=== PATIENT | female | born 1965 | race Caucasian/White ===

== ENCOUNTER 2018-07-02 16:42 | Emergency (ER) | payer OTHER ==
[~2018-07-02] VITALS: Ht 172.7 cm; Wt 111.1 kg
[~2018-07-02 16:42] MED LIST: ACET500; ALBIPROI; ALBIPROI INH; ALBU.083IS; ALBU.083IS IH; ALBU90I INH; ALBU90OI; ALBU90OI INH; ALPR.5 PO; AZIT250 PO; Amlodipine Bes2.5 MG PO; BELPTAB PO; BENZ100A PO; BISA5EC PO; CEFU500 PO; CIPR500 PO; CLARITIN10 MG PO; DIAZ5 PO; DIPATR PO; DIPH50 PO; DOC250 PO; DOCU100 PO; DOXY100 PO; EPIPEN 2-P0.3 MG/0.3 IM; FAMO10 PO; FAMO20 PO; FAMO40 PO; FLUT.05NI; FLUT110OIA IH; Flexeril5 MG PO; GUAI600T33 PO; HYDACE5 PO; HYDGUAL120 PO; HYDR1TAB94 PO; LEVFLO500 PO; LEVSOD100 PO; LEVSOD50; LEVSOD50 PO; LORA.5 PO; LORA1 PO; MEDR5; MEDR5 PO; METR500 PO; NAPR500 PO; OMEP20ER PO; ONDA4 PO; OXYACE5T; OXYACE5T PO; PANT40 PO; POLY17UD PO; PRED10 PO; PRED20 PO; PROACE100; PROACE100 PO; PROM25 PO; PSEU120ER PO; PSEU30; PSEU30 PO; Percocet 5-3251 EACH PO; Prednisone20 MG PO; RABE20 PO; RANI150; RANI150 PO; RXHYD5325 PO; RXHYDACE PO; RXONDA4ODT MM; RXOXYACE PO; RXPROACE PO; RXPROM25 PO; SERT25 PO; SUCR1 PO; TETR250; TETR250 PO; TRAM50 PO; TYLENOL; Zovirax800 MG PO
[2018-07-02] MEDS ORDERED: FAMO20 PO (17:10)
[2018-07-02] MEDS ORDERED: AMLO5 PO (17:10)
== END 2018-07-02 17:32 | disposition home or self-care (01) ==
LOC: ER 16:42
DX: H61.21 Impacted cerumen, right ear (principal); Z88.1 Allergy status to other antibiotic agents; Z88.8 Allergy status to other drugs, medicaments and biological substances; Z91.013 Allergy to seafood; Z88.6 Allergy status to analgesic agent; Z79.899 Other long term (current) drug therapy; I10 Essential (primary) hypertension; Z87.891 Personal history of nicotine dependence
CPT/HCPCS: 99282

== ENCOUNTER 2018-08-01 19:49 | Emergency (ER) | payer OTHER ==
[~2018-08-01] VITALS: Ht 172.7 cm; Wt 117.9 kg
[~2018-08-01 19:49] MED LIST changes: +AMLO5 PO
[2018-08-01 20:29] LABS: BASOPHILS ABSOLUTE AUTO 0.04 K/mm3 (0.00-0.23); BASOPHILS PERCENT AUTO 1 % (0-2); EOSINOPHILS PERCENT AUTO 1 % (0-6); Hematocrit 38.8 % (33.0-51.0); Hemoglobin 12.6 g/dL (11.5-16.0); IMMATURE GRAN ABSOLUTE AUTO 0.03 K/mm3 (0.00-0.10); IMMATURE GRAN PERCENT AUTO 0 % (0-1); LYMPHOCYTES ABSOLUTE AUTO 2.59 K/mm3 (0.84-5.20); LYMPHOCYTES PERCENT AUTO 36 % (21-46); MONOCYTES ABSOLUTE AUTO 0.57 K/mm3 (0.16-1.47); MONOCYTES PERCENT AUTO 8 % (4-13); Mean Corpuscular HGB 29.7 pg (26.0-34.0); Mean Corpuscular HGB Conc 32.5 g/dL (31.5-36.5); Mean Corpuscular Volume 92 fL (80-100); NEUTROPHILS ABSOLUTE AUTO 3.95 K/mm3 (1.96-9.15); NEUTROPHILS PERCENT AUTO 54 % (41-73); Platelet Count 294 K/mm3 (150-400); RDW Coefficient Variation 13.7 % (11.7-14.2); RDW Standard Deviation 46.4 fL (35.1-46.3); Red Blood Cell Count 4.24 M/mm3 (3.80-5.20); White Blood Cell Count 7.28 K/mm3 (4.00-11.30)
[2018-08-01 21:28] LABS: Alanine Aminotransfer (ALT/SGP 31 U/L (12-78); Albumin, Blood 3.6 g/dL (3.4-5.0); Albumin/Globulin Ratio 0.9 (0.8-1.8); Alk Phos 83 U/L (50-136); Anion Gap 7 mmol/L (6-16); Aspartate Aminotrans (AST/SGOT 19 U/L (12-37); Bilirubin, Total 0.2 mg/dL (0.1-1.0); Blood Urea Nitrogen 9 mg/dL (8-24); Bun/Creatinine Ratio 9.9 (12.0-20.0); CO2, Blood 26 mmol/L (21-32); Calcium, Blood 8.4 mg/dL (8.5-10.1); Chloride, Blood 109 mmol/L (98-108); Creatinine, Blood 0.91 mg/dL (0.40-1.00); Glomerular Filtration Rate >60 (60-); Glucose, Blood 88 mg/dL (70-99); Potassium, Blood 4.1 mmol/L (3.5-5.5); Sodium, Blood 142 mmol/L (136-145); Total Protein, Blood 7.6 g/dL (6.4-8.2); Troponin I <0.015 ng/mL (0.000-0.040)
== END 2018-08-01 22:39 | disposition home or self-care (01) ==
LOC: ER 19:49
PROVIDERS: Emergency Medicine
DX: S46.912A Strain of unspecified muscle, fascia and tendon at shoulder and upper arm level, left arm, initial encounter (principal); J44.9 Chronic obstructive pulmonary disease, unspecified; E03.9 Hypothyroidism, unspecified; I10 Essential (primary) hypertension; Z88.0 Allergy status to penicillin; Z88.2 Allergy status to sulfonamides; Z87.891 Personal history of nicotine dependence; Z79.899 Other long term (current) drug therapy; X58.XXXA Exposure to other specified factors, initial encounter
CPT/HCPCS: 71046; 80053; 84484; 85025; 93005; 93010; 99285-25; A9270-GY

== ENCOUNTER 2020-04-03 03:11 | Observation (INO) | payer OTHER ==
[~2020-04-03] VITALS: Ht 175.3 cm; Wt 117.4 kg
[2020-04-03 03:56] LABS: BASOPHILS ABSOLUTE AUTO 0.03 K/mm3 (0.00-0.23); BASOPHILS PERCENT AUTO 0 % (0-2); EOSINOPHILS ABSOLUTE AUTO 0.13 K/mm3 (0.00-0.68); EOSINOPHILS PERCENT AUTO 2 % (0-6); Hematocrit 42.8 % (33.0-51.0); Hemoglobin 13.8 g/dL (11.5-16.0); IMMATURE GRAN ABSOLUTE AUTO 0.03 K/mm3 (0.00-0.10); IMMATURE GRAN PERCENT AUTO 0 % (0-1); LYMPHOCYTES PERCENT AUTO 44 % (21-46); MONOCYTES ABSOLUTE AUTO 0.48 K/mm3 (0.16-1.47); MONOCYTES PERCENT AUTO 7 % (4-13); Mean Corpuscular HGB 28.6 pg (26.0-34.0); Mean Corpuscular HGB Conc 32.2 g/dL (31.5-36.5); Mean Corpuscular Volume 89 fL (80-100); Mean Platelet Volume 9.7 fL (9.1-12.4); NEUTROPHILS ABSOLUTE AUTO 3.43 K/mm3 (1.96-9.15); NEUTROPHILS PERCENT AUTO 47 % (41-73); Platelet Count 268 K/mm3 (150-400); RDW Coefficient Variation 13.4 % (11.7-14.2); RDW Standard Deviation 44.4 fL (35.1-46.3); Red Blood Cell Count 4.83 M/mm3 (3.80-5.20)
[2020-04-03 04:11] LABS: Alanine Aminotransfer (ALT/SGP 36 U/L (12-78); Albumin, Blood 4.2 g/dL (3.4-5.0); Alk Phos 78 U/L (50-136); Anion Gap 9 mmol/L (6-16); Aspartate Aminotrans (AST/SGOT 22 U/L (12-37); Bilirubin, Total 0.2 mg/dL (0.1-1.0); Blood Urea Nitrogen 12 mg/dL (8-24); Bun/Creatinine Ratio 15.7 (12.0-20.0); CO2, Blood 24 mmol/L (21-32); Calcium, Blood 8.9 mg/dL (8.5-10.1); Chloride, Blood 108 mmol/L (98-108); Creatinine, Blood 0.76 mg/dL (0.40-1.00); Globulin, Blood 4.2 g/dL (2.2-4.0); Glomerular Filtration Rate >60 (60-); Glucose, Blood 110 mg/dL (70-99); Potassium, Blood 3.5 mmol/L (3.5-5.5); Sodium, Blood 141 mmol/L (136-145); Total Protein, Blood 8.4 g/dL (6.4-8.2); Troponin I <0.015 ng/mL (0.000-0.040)
[2020-04-03 05:27] LABS: Free Thyroxine 1.01 ng/dL (0.70-1.60); Magnesium, Blood 2.2 mg/dL (1.6-2.4)
--- NOTE | 2020-04-03 06:45 | NUR ---
PT ARRIVES TO ICU 9 VIA GURNEY FROM ER. SHE DENIES CP/PRESSURE, STATES THAT THE TIGHTNESS SHE HAD BEEN HAVING IS FEELING MUCH IMPROVED. SHE STANDS TO TRANSFER TO BED WITH STEADY GAIT, DENIES DIZZINESS/VERTIGO WITH TRANSFER. DENIES N/V, DENIES PAIN, DENIES NUMBNESS/TINGLING. VERB UNDERSTANDING OF CALL LIGHT USE. DENIES FURTHER NEEDS AT THIS TIME. SHE STATES THAT SHE FELT LIKE SHE HAD A SINUS INFECTION PRIOR TO BEING TESTED FOR COVID AT HER PRIMARY CARE PHYSICIAN'S OFFICE. 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 SHE DOES STATE THAT THERE IS OTHER FAMILY IN THE HOME AT THIS TIME TO ASSIST HER MOTHER. SHE IS SPEAKING IN FULL SENTENCES AND SATS MAINTAINING WITHOUT VISIBLE INCREASED WORK OF BREATHING. HEART RATE ON MONITOR IS 70S, CARDIZEM GTT AT 5 MG/HR, PRESSURES MAINTAINING. WILL REPORT TO DAY SHIFT RN.
--- NOTE | 2020-04-03 11:14 | NUR ---
AM NOTE... ASSUMED CARE OF PT APROX 0700, PT IS A&Ox4 AND IND IN THE ROOM. PT IS COVID-19 POSITIVE. PT WAS ADMITTED FOR AFIB W/RVR BUT WAS CONVERTED BACK TO SINUS PRIOR TO ARRIVAL ON THE UNIT. PT IS ON CARDIZEM GTT RUNNING AT 5MG/HR WITH STABLE BP AND HR IN THE 60'S-70'S. CARDIZEM GTT WAS STOPPED AT 0945 WHEN 30MG PO CARDIZEM WAS GIVEN. PT DENIES ANY CHEST PAIN/PRESSURE OR PALPITATIONS. PT IS ON RA WITH O2 SATS>95%, L/S CLEAR T/O. NO EDEMA NOTED ON ASSESSMENT. BT PRESENT AND HYPERACTIVE,ABD IS SOFT AND NONTENDER TO PALP. PT IS IND WITH TURNING IN BED SEVERAL TIMES PER HOUR AND IND UP TO THE TOILET. PT DENIES ANY LIGHT HEADED/DIZZINESS OR SOB WITH ACTIVITY. CALL LIGHT IN REACH WILL CONTINUE TO MONITOR.
--- NOTE | 2020-04-03 11:46 | NUR ---
ECHOCARDIOGRAM COMPLETED
--- NOTE | 2020-04-03 16:18 | NUR ---
SHIFT SUMMARY ICU TRANSFER THIS AFTERNOON. PATIENT MEDICATED X1 FOR PAIN IN NECK AND SHOULDER. DENIES CHEST PAIN, NAUSEA, AND SHORTNESS OF BREATH. UP INDEPENDENT IN ROOM. EATING AND DRINKING WELL. TROPONINS NEGATIVE THUS FAR. ECHO TOMORROW AM.
--- NOTE | 2020-04-04 04:30 | NUR ---
SHIFT SUMMARY NO ACUTE CHANGES THIS SHIFT, A&O, INDEP IN ROOM, MEDICATED FOR DEXTER- PT STATES TYLENOL RELIEVES DEXTER BUT "WEARS OFF TOO FAST", SLEPT T/O THE NIGHT, SLEEPING AT THIS TIME, CALL LIGHT IN REACH, WILL CONT TO MONITOR UNTIL REPORT GIVEN TO DAY RN.
[2020-04-04] MEDS ORDERED: DILT120 PO (13:08)
== END 2020-04-04 15:35 | disposition home or self-care (01) ==
LOC: ER 03:11 → ICUW 03:12 → MEDS 13:48
PROVIDERS: Emergency Medicine; ADMIT Internal Medicine
DX: I48.91 Unspecified atrial fibrillation (principal); U07.1 COVID-19; E03.9 Hypothyroidism, unspecified; J44.9 Chronic obstructive pulmonary disease, unspecified; I10 Essential (primary) hypertension; E66.01 Morbid (severe) obesity due to excess calories; Z87.891 Personal history of nicotine dependence; Z88.2 Allergy status to sulfonamides; Z88.8 Allergy status to other drugs, medicaments and biological substances; Z88.1 Allergy status to other antibiotic agents; Z88.0 Allergy status to penicillin; Z91.013 Allergy to seafood; Z68.41 Body mass index [BMI] 40.0-44.9, adult
CPT/HCPCS: 36415; 71045; 80053; 83735; 83880; 84439; 84443; 84484; 85025; 93005; 93010; 93306; 96374; 96375; 96376; 99285-25; A9270; G0378; J1100; J1170; J1650; J2405

== ENCOUNTER 2020-05-04 12:59 | Emergency (ER) | payer OTHER ==
[~2020-05-04] VITALS: Ht 172.7 cm; Wt 113.4 kg
[~2020-05-04 12:59] MED LIST changes: +DILT120 PO
[2020-05-04 14:04] LABS: BASOPHILS ABSOLUTE AUTO 0.03 K/mm3 (0.00-0.23); BASOPHILS PERCENT AUTO 1 % (0-2); EOSINOPHILS ABSOLUTE AUTO 0.08 K/mm3 (0.00-0.68); EOSINOPHILS PERCENT AUTO 1 % (0-6); Hematocrit 40.6 % (33.0-51.0); Hemoglobin 13.4 g/dL (11.5-16.0); IMMATURE GRAN ABSOLUTE AUTO 0.03 K/mm3 (0.00-0.10); IMMATURE GRAN PERCENT AUTO 1 % (0-1); LYMPHOCYTES ABSOLUTE AUTO 1.74 K/mm3 (0.84-5.20); LYMPHOCYTES PERCENT AUTO 28 % (21-46); MONOCYTES ABSOLUTE AUTO 0.38 K/mm3 (0.16-1.47); MONOCYTES PERCENT AUTO 6 % (4-13); Mean Corpuscular HGB 29.2 pg (26.0-34.0); Mean Corpuscular Volume 89 fL (80-100); Mean Platelet Volume 9.7 fL (9.1-12.4); NEUTROPHILS PERCENT AUTO 64 % (41-73); Platelet Count 295 K/mm3 (150-400); RDW Coefficient Variation 13.5 % (11.7-14.2); RDW Standard Deviation 43.8 fL (35.1-46.3); Red Blood Cell Count 4.59 M/mm3 (3.80-5.20); White Blood Cell Count 6.26 K/mm3 (4.00-11.30)
[2020-05-04 14:26] LABS: Alanine Aminotransfer (ALT/SGP 29 U/L (12-78); Albumin, Blood 3.7 g/dL (3.4-5.0); Albumin/Globulin Ratio 0.9 (0.8-1.8); Alk Phos 88 U/L (50-136); Anion Gap 5 mmol/L (6-16); Aspartate Aminotrans (AST/SGOT 20 U/L (12-37); Bilirubin, Total 0.3 mg/dL (0.1-1.0); Blood Urea Nitrogen 6 mg/dL (8-24); Bun/Creatinine Ratio 8.2 (12.0-20.0); CO2, Blood 26 mmol/L (21-32); Calcium, Blood 9.1 mg/dL (8.5-10.1); Chloride, Blood 109 mmol/L (98-108); Creatinine, Blood 0.74 mg/dL (0.40-1.00); Globulin, Blood 4.3 g/dL (2.2-4.0); Glomerular Filtration Rate >60 (60-); Glucose, Blood 127 mg/dL (70-99); Sodium, Blood 140 mmol/L (136-145); Troponin I <0.015 ng/mL (0.000-0.040)
[2020-05-04] MEDS ORDERED: ALLERCLEAR10 MG PO (15:13)
[2020-05-04] MEDS ORDERED: LEVOTHYROXINE112 MC2 PO (15:13)
[2020-05-04 15:45] LABS: Source, Urine Clean Catch
[2020-05-04 15:47] LABS: Appearance, Urine Clear (Clear); Bilirubin, Urine Neg (Neg); Blood, Urine Neg (Neg); Color, Urine Yellow (P-Yellow); Glucose Qualitative, Urine Neg (Neg); Ketones, Urine Neg (Neg); Leukocyte Esterase, Urine Neg (Neg); Nitrite, Urine Neg (Neg); Protein, Urine Neg (Neg); Specific Gravity, Urine 1.005 (1.003-1.022); Urobilinogen, Urine NORM (Normal)
[2020-05-04] MEDS ORDERED: DILT120 PO (16:01)
== END 2020-05-04 16:47 | disposition home or self-care (01) ==
LOC: ER 12:59
PROVIDERS: Emergency Medicine; Physician Assistant
DX: I48.0 Paroxysmal atrial fibrillation (principal); J44.9 Chronic obstructive pulmonary disease, unspecified; E03.9 Hypothyroidism, unspecified; I10 Essential (primary) hypertension; Z87.891 Personal history of nicotine dependence; Z79.899 Other long term (current) drug therapy; Z88.1 Allergy status to other antibiotic agents; Z88.8 Allergy status to other drugs, medicaments and biological substances; Z88.0 Allergy status to penicillin; Z88.6 Allergy status to analgesic agent; Z88.2 Allergy status to sulfonamides
CPT/HCPCS: 36415; 71046; 80053; 81003; 83690; 84484; 85025; 93005; 93010; 99285-25

== ENCOUNTER 2021-07-06 00:05 | Emergency (ER) | payer OTHER ==
[~2021-07-06] VITALS: Ht 172.7 cm; Wt 102.1 kg
[~2021-07-06 00:05] MED LIST changes: +ALLERCLEAR10 MG PO; +LEVOTHYROXINE112 MC2 PO
== END 2021-07-06 03:53 | disposition home or self-care (01) ==
LOC: ER 00:05
DX: S90.32XA Contusion of left foot, initial encounter (principal); J44.9 Chronic obstructive pulmonary disease, unspecified; E03.9 Hypothyroidism, unspecified; I10 Essential (primary) hypertension; Z87.891 Personal history of nicotine dependence; Z88.0 Allergy status to penicillin; Z88.2 Allergy status to sulfonamides; Z88.8 Allergy status to other drugs, medicaments and biological substances; Z79.899 Other long term (current) drug therapy; X58.XXXA Exposure to other specified factors, initial encounter
CPT/HCPCS: 73630; 99283-25; A9270

== ENCOUNTER 2022-04-03 22:22 | Emergency (ER) | payer OTHER ==
[~2022-04-03] VITALS: Ht 167.6 cm; Wt 127.0 kg
[2022-04-03] MEDS ORDERED: EUTHYROX112 MC1 PO (23:20)
[2022-04-03] MEDS ORDERED: DILTIAZEM 24HR240 M3 PO (23:20)
[2022-04-03] MEDS ORDERED: CYCL10 PO (23:20)
[2022-04-03 23:21] LABS: Source, Urine Clean Catch
[2022-04-03 23:26] LABS: Appearance, Urine Clear (Clear); Bilirubin, Urine Neg (Neg); Blood, Urine Neg (Neg); Glucose Qualitative, Urine Neg (Neg); Ketones, Urine Neg (Neg); Leukocyte Esterase, Urine Neg (Neg); Nitrite, Urine Neg (Neg); Protein, Urine Neg (Neg); Specific Gravity, Urine 1.015 (1.003-1.022); Urobilinogen, Urine NORM (Normal)
[2022-04-03 23:37] LABS: BASOPHILS ABSOLUTE AUTO 0.04 K/mm3 (0.00-0.23); BASOPHILS PERCENT AUTO 1 % (0-2); EOSINOPHILS ABSOLUTE AUTO 0.07 K/mm3 (0.00-0.68); EOSINOPHILS PERCENT AUTO 1 % (0-6); Hematocrit 39.1 % (33.0-51.0); Hemoglobin 12.9 g/dL (11.5-16.0); IMMATURE GRAN ABSOLUTE AUTO 0.03 K/mm3 (0.00-0.10); IMMATURE GRAN PERCENT AUTO 0 % (0-1); LYMPHOCYTES ABSOLUTE AUTO 2.24 K/mm3 (0.84-5.20); LYMPHOCYTES PERCENT AUTO 28 % (21-46); MONOCYTES ABSOLUTE AUTO 0.43 K/mm3 (0.16-1.47); MONOCYTES PERCENT AUTO 5 % (4-13); Mean Corpuscular HGB 29.5 pg (26.0-34.0); Mean Corpuscular Volume 89 fL (80-100); Mean Platelet Volume 8.9 fL (9.1-12.4); NEUTROPHILS ABSOLUTE AUTO 5.34 K/mm3 (1.96-9.15); NEUTROPHILS PERCENT AUTO 65 % (41-73); Platelet Count 299 K/mm3 (150-400); RDW Coefficient Variation 13.6 % (11.7-14.2); RDW Standard Deviation 44.8 fL (35.1-46.3); Red Blood Cell Count 4.38 M/mm3 (3.80-5.20); White Blood Cell Count 8.15 K/mm3 (4.00-11.30)
[2022-04-03 23:38] LABS: Color, Urine Pale Yellow (P-Yellow)
[2022-04-04 00:12] LABS: Influenza A, PCR NEGATIVE (NEGATIVE); Influenza B, PCR NEGATIVE (NEGATIVE); Resp Syncytial Virus, PCR NEGATIVE (NEGATIVE); SARS-Cov-2 (COVID-19) PCR, MMC NEGATIVE (NEGATIVE)
[2022-04-04 00:31] LABS: Magnesium, Blood 2.3 mg/dL (1.6-2.4)
[2022-04-04 00:34] LABS: Albumin, Blood 3.9 g/dL (3.4-5.0); Albumin/Globulin Ratio 0.8 (0.8-1.8); Bilirubin, Total 0.2 mg/dL (0.1-1.0); Bun/Creatinine Ratio 11.1 (12.0-20.0); Calcium, Blood 9.4 mg/dL (8.5-10.1); Creatinine, Blood 0.72 mg/dL (0.40-1.00); Globulin, Blood 4.6 g/dL (2.2-4.0); Potassium, Blood 3.8 mmol/L (3.5-5.5); Thyroid Stimulating Hormone 2.61 uIU/mL (0.360-4.800); Total Protein, Blood 8.5 g/dL (6.4-8.2)
[2022-04-04] MEDS ORDERED: MECL25 PO (01:00)
== END 2022-04-04 01:24 | disposition home or self-care (01) ==
LOC: ER 22:22
PROVIDERS: Student in an Organized Health Care Education/Training Program
DX: R42 Dizziness and giddiness (principal); R11.0 Nausea; J44.9 Chronic obstructive pulmonary disease, unspecified; E03.9 Hypothyroidism, unspecified; I10 Essential (primary) hypertension; Z88.2 Allergy status to sulfonamides; Z88.6 Allergy status to analgesic agent; Z88.1 Allergy status to other antibiotic agents; Z91.018 Allergy to other foods; Z88.0 Allergy status to penicillin; Z91.013 Allergy to seafood; Z79.899 Other long term (current) drug therapy; Z87.891 Personal history of nicotine dependence
CPT/HCPCS: 0241U; 36415; 80053; 81003; 83735; 84443; 85025; 93005; 93010; A9270